=== PATIENT | female | born 1960 | race Caucasian/White ===

== ENCOUNTER 2017-09-17 16:31 | Emergency (ER) | payer BC ==
[~2017-09-17] VITALS: Ht 152.4 cm; Wt 79.9 kg
[2017-09-17 16:33] VITALS: BP 125/75; PULSE 77; RESP 18; TEMP 99.2; O2SAT 97
--- NOTE | 2017-09-17 16:58 | PD ---
HPI Chief Complaint: Cold / Flu Symptoms Time Seen by Provider: 16:44 Travel History International Travel<30 days: No Contact w/Intl Traveler<30days: No Traveled to known affect area: No History of Present Illness HPI 57-year-old female presents the emergency department with upper respiratory congestion, headache, postnasal drip, cough, and pressure. Has felt chills but no significant fever. Patient denies chest congestion or wheezing. No nausea vomiting or diarrhea. Patient states her illness is been over a week, and worsening the past several days. Patient states it started after being exposed to mold in her car. Today currently is 8 out of 10. Her cough is productive of yellow-green sputum. It is worse when she lays down first in the morning. She has multiple allergies including citrus, insulin, codeine, morphine, sertraline, and venlafaxine. PFSH Past Medical History Medical History: Denies Significant Hx Diminished Hearing: No Immunizations Current: Yes Tetanus Vaccination: < 5 Years Influenza Vaccination: No ?: Not Past Surgical History Hysterectomy: Yes Social History Alcohol Use: Yes Tobacco Use: No Substance Use: No Allergies-Medications (Allergen,Severity, Reaction): Coded Allergies: [place]ath[place] And Derivatives (Verified Allergy, Severe, Anaphylaxis, 09/17/17) codeine (Verified Allergy, Severe, Anaphylaxis, 09/17/17) morphine (Verified Allergy, Severe, Anaphylaxis, 09/17/17) sertraline (Verified Allergy, Severe, Arrhythmias, 09/17/17) venlafaxine (Verified Allergy, Severe, AGITATION, 09/17/17) Penicillins (Verified Allergy, Unknown, 09/17/17) A CHILD Reported Meds & Prescriptions Reported Meds & Active Scripts Active Flonase Nasal [place] (Fluticasone Nasal [place]) 50 Mcg/Act [place] 100 Mcg EACH NARE BID Levaquin (Levofloxacin) 500 Mg Tablet 500 Mg PO DAILY 10 Days Review of Systems Except as stated in HPI: all other systems reviewed are Neg General / Constitutional: Positive: Chills, No: Fever Eyes: No: Visual changes HENT: Positive: Headaches, Sore Throat, Rhinitis, Rhinorrhea, Congestion, No: Vertigo, Lightheadedness, Nosebleed, Neck Stiffness, Neck Pain, Gingival Bleeding, Dental Difficulties, Ear Discharge, Earache Cardiovascular: No: Chest Pain or Discomfort Respiratory: Positive: Cough, No: Shortness of Breath, Wheezing, Sneezing Gastrointestinal: No: Nausea, Vomiting, Diarrhea, Abdominal Pain Genitourinary: No: Dysuria Musculoskeletal: No: Pain Skin: No Rash Neurologic: No: Weakness Psychiatric: No: Depression Endocrine: No: Polydipsia Hematologic/Lymphatic: No: Easy Bruising Physical Exam Narrative GENERAL: Patient appears ill but not septic. SKIN: Warm and dry. Normal color. Normal turgor. No rash. HEAD: Atraumatic. Normocephalic. Moderate sinus tenderness to palpation percussion of both frontal and maxillary sinuses bilaterally. EYES: Pupils equal and round. No scleral icterus. No injection or drainage. ENT: No nasal bleeding or discharge. Mucous membranes pink and moist. Posterior pharynx is injected with cobblestoning and obvious postnasal drip present. No significant lymphadenopathy however uvula is midline. TMs are somewhat dull bilaterally but no injection. NECK: Trachea midline. Supple and nontender. CARDIOVASCULAR: Regular rate and rhythm. RESPIRATORY: No accessory muscle use. Clear to auscultation. Breath sounds equal bilaterally. GASTROINTESTINAL: Abdomen soft, non-tender, nondistended. Hepatic and splenic margins not palpable. MUSCULOSKELETAL: Extremities without clubbing, cyanosis, or edema. No obvious deformities. NEUROLOGICAL: Awake and alert. No obvious cranial nerve deficits. Motor grossly within normal limits. Five out of 5 muscle strength in the arms and legs. Normal speech. PSYCHIATRIC: Appropriate mood and affect; insight and judgment normal. Data Data Last Documented VS Vital Signs Date Time Temp Pulse Resp B/P (MAP) Pulse Ox O2 Delivery O2 Flow Rate FiO2 09/17/17 16:44 97 Room Air 09/17/17 16:33 99.2 77 18 125/75 (92) Orders Orders Ed Discharge Order (09/17/17 16:59) [facility] Medical Decision Making Medical Screen Exam Complete: Yes Emergency Medical Condition: Yes Differential Diagnosis Acute sinusitis. Postnasal drip. Pharyngitis. Narrative Course Patient was treated with Levaquin 500 mg daily for 10 days. Patient also given Flonase nasal spray 2 sprays nostril daily. Patient use [id number] cough and cold medicines as needed. Follow up if symptoms do not improve or worsen as needed. Diagnosis Primary Impression: Acute pansinusitis, unspecified Qualified Codes: J01.40 - Acute pansinusitis, unspecified Referrals: Primary Care Physician Patient Instructions: General Instructions, Sinusitis (ED) Additional Instructions: Patient was treated with Levaquin 500 mg daily for 10 days. Patient also given Flonase nasal spray 2 sprays nostril daily. Patient use [id number] cough and cold medicines as needed. Follow up if symptoms do not improve or worsen as needed. Scripts Fluticasone Nasal [place] (Flonase Nasal [place]) 50 Mcg/Act [place] 100 MCG EACH NARE BID for Allergies, #1 BOTTLE 0 Refills Prov: Alisha Berry MD 09/17/17 Levofloxacin (Levaquin) 500 Mg Tablet 500 MG PO DAILY for Infection for 10 Days, #10 TAB 0 Refills Prov: Alisha Berry MD 09/17/17 Disposition: 01 DISCHARGE HOME Condition: Stable Mirza Virk Sep 17, 2017 16:58
[2017-09-17] MEDS ORDERED: LEVA500T33 PO (16:59)
[2017-09-17] MEDS ORDERED: FLUT1SPR5 EACH NARE (16:59)
== END 2017-09-17 17:37 | disposition home or self-care (01) ==
LOC: PHEFT 16:31
DX: J01.40 Acute pansinusitis, unspecified (principal)
CPT/HCPCS: 99283